=== PATIENT | male | born 1985 | race Caucasian/White ===

== ENCOUNTER 2017-06-12 09:23 | Emergency (ER) | payer SELFPAY ==
[2017-06-12 09:24] VITALS: BP 145/108; PULSE 68; RESP 16; TEMP 36.3; O2SAT 100
[2017-06-12 09:25] VITALS: BP 145/108; PULSE 69; RESP 16; TEMP 36.3; O2SAT 100; BMI 27.4
--- NOTE | 2017-06-12 09:40 | CT_ITS ---
STUDY: CT ABDOMEN AND PELVIS WITHOUT CONTRAST REASON FOR EXAM: Male, 31 years old. Left lower quadrant pain for 6 weeks RADIATION DOSAGE (If Supplied By Facility): CTDIvol = ( 7.45 ) mGy, DLP = ( 372.29 ) mGycm TECHNIQUE: Transaxial images were obtained from the dome of the diaphragm to the symphysis pubis without oral contrast, and without intravenous contrast. Sagittal and coronal images were reconstructed. Individualized dose optimization techniques were used for this CT. COMPARISON: None. FINDINGS: Lung bases demonstrate no evidence for consolidative process. Liver and spleen demonstrate no discrete mass. The pancreas are within normal limits. The adrenal glands appear unremarkable. The bowel gas pattern is nonobstructive. Gallbladder is within normal limits. Kidneys demonstrate no evidence for hydronephrosis. A few scattered colonic diverticulosis without evidence for acute diverticulitis. No evidence for acute appendicitis. Osseous structures demonstrate no acute abnormalities. Mild degenerative changes in the lower lumbar spine IMPRESSION: No evidence for small bowel obstruction. No evidence for acute diverticulitis or appendicitis seen. Fat-containing left-sided inguinal hernia Electronically Signed: Arsh Foote, at 11:07 EDT Tel , Service support , CT/Abdomen/Pelvis without Cont
--- NOTE | 2017-06-12 09:52 | ED.VISSUMM ---
- ER Visit Summary Date of Service: 06/12/17 Chief Complaint: Left lower quadrant abdominal pain History of Present Illness: The patient is a 31 M intermittent left lower quadrant abdomen pain over the past 6 weeks. Patient states had pain initially for 2 weeks that went away. Yesterday started returning sharp in nature with double him over. Pain this morning, subsiding since arrival to the ED. States he has pain with urination. No fevers. Complains of chills. No history of kidney stones. Normal bowel movements. Denies any pain in his groin. No past mental history. Surgical history with finger re-amputations from injuries. No history of gastric ulcers or kidney injuries. Currently pain is a 4. Nausea without vomiting. Physical Examination: General: Alert and oriented ?3, no acute distress HEENT: Normocephalic, atraumatic. Moist mucosa membranes Neck: supple, nontender. Cardiovascular: Regular rate and rhythm, no murmurs Respiratory: Normal breath sounds, symmetric, no distress Abdomen: Soft, nontender, nondistended, no guarding or rebound, normal bowel sounds Back: No CVA tenderness, no rash Extremities: Nontender, no edema, pulses intact ?4 Neuro: no focal neurological deficits. Test Results: CBC white count 5.4. Hemoglobin 16. Creatinine 0.9. UA [address] abdomen pelvis normal appendix. Fat-containing left inguinal hernia. No obstructive uropathy Emergency Department Course and Treatment: Renal stone protocol initiated. Declined any medications. Workup notes a fat-containing left inguinal hernia. I discussed with patient he now states he has been having on and off left groin pain. I did check for hernia, did palpate the hernia seen on CT. It is not incarcerated or strangulated. It was reducible. He states his pain does refer up to his location of pain. Symptoms are controlled. He is given follow-up with surgery as an outpatient for reevaluation and treatment as needed. Treatment Plan: [] Disposition: Discharge Impression: Reducible fat containing left inguinal hernia This note was generated with [employer] dictation software. It may contain incorrect words, spelling, and punctuation that were not noted in review of the chart prior to signing ED Disposition - Plan for ED Patient: Disposition: Home or Assisted Living Chief Complaint: Abd Pain Diagnosis: Left inguinal hernia Instructions: ED Hernia Inguinal Referrals: Care Physician,No Primary [Primary Care Provider] - Demetrius Ontiveros MD [STAFF PHYSICIAN] - 5-7 Days Additional Instructions: Fat-containing left inguinal hernia
[2017-06-12 10:40] LABS: Absolute Lymphocyte Count 1.93 X10^3/ul (0.83-4.51); Basophil# 0.01 X10^3/uL; Basophil% 0.2 % (0-1); Eosinophil# 0.15 X10^3/uL; Eosinophils% 2.8 % (0-5); Hematocrit 46.2 % (40-54); Hemoglobin 16.2 g/dl (13.0-16.5); Lymphocyte # 1.93 X10^3/ul (4.0); Lymphocyte % 35.8 % (19-41); Mean Corp Hgb Conc 35.1 g/gl (32-36); Mean Corpuscular Hgb 30.2 pg (27.0-32.0); Mean Platelet Vol. 10.3 fl (6.2-12.0); Monocyte% 5.6 % (0-10); Neutrophil # 2.99 X10^3/uL (2.7-7.7); Neutrophil % 55.4 % (47-70); Platelet Count 223 K/mm3 (150-450); RBC Distribution Width CV 12.6 % (11.6-14.6); RBC Distribution Width SD 39.6 fl (35.1-43.9); Red Blood Count 5.37 M/mm3 (4.6-6.2); White Blood Count 5.4 K/mm3 (4.4-11.0)
[2017-06-12 10:41] LABS: POSITIVE COUNT NO; POSITIVE DIFFERENTIAL NO; POSITIVE MORPHOLOGY NO
[2017-06-12 10:48] LABS: Anion Gap 5 (5-15); BUN 16 mg/dL (7-18); BUN/Creat Ratio 17.9 RATIO (10-20); Calcium,Total 9.1 mg/dL (8.5-10.1); Chloride 107 mmol/L (98-107); EST Glomerular Filtration Rate 103 mL/min (>60); Est Glom Filt Rate - Afr Amer 125 mL/min (>60); Estimated Creatinine Clearance 105.35 ml/min; Glucose 83 mg/dL (74-106); Potassium 3.9 mmol/L (3.5-5.1); Sodium Level 140 mmol/L (136-145)
[2017-06-12 11:04] LABS: Bacteria 0 SEEN /hpf (None Seen); Mucous, Urine 0 SEEN /hpf (<or=2+); Red Blood Cells-Urine 0 SEEN /hpf (0-5); Squamous Epithelial Cells - UA 0 SEEN /hpf (0-5)
[2017-06-12 11:06] LABS: Color, Urine Yellow (Yellow); Glucose, Dipstick Normal (Normal); Ketone-Dipstick Negative (Negative); Leukocyte Esterase-Dipstick Negative /ul (Negative); Nitrite-Dipstick Negative (Negative); Occult Blood-Urine 25 /ul (Negative); Protein-Dipstick Negative (Negative); Urine Bilirubin Dipstick Negative (Negative); Urine Clarity Clear (Clear); Urine Urobilinogen Normal (Normal)
[2017-06-12 11:15] LABS: White Blood Cells 0-5 SEEN /hpf (0-5)
== END 2017-06-12 11:55 | disposition home or self-care (01) ==
PROVIDERS: Emergency Provider Emergency Medicine
DX: K40.90 Unilateral inguinal hernia, without obstruction or gangrene, not specified as recurrent (principal)
CPT/HCPCS: 74176; 80048; 81001; 85025; 99282; A4216